=== PATIENT | female | born 1995 | race Caucasian/White ===

== ENCOUNTER 2017-05-21 16:22 | Emergency (ER) | payer OTHER ==
[~2017-05-21] VITALS: Ht 162.6 cm; Wt 65.8 kg
[2017-05-21] MEDS ORDERED: ETHI1TAB26 PO (16:49)
[2017-05-21 17:15] LABS: ASPARTATE AMINO TRANSFERASE 15 U/L (15-37); BLOOD UREA NITROGEN 14 mg/dL (7-18)
[2017-05-21 17:45] VITALS: BP 115/61
[2017-05-21 17:46] LABS: HEMATOCRIT 43.8 % (34.6-47.8); HEMOGLOBIN 14.8 g/dL (11.7-16.4)
== END 2017-05-21 18:35 | disposition home or self-care (01) ==
LOC: ED 16:58
DX: R10.13 Epigastric pain (principal)
CPT/HCPCS: 36415; 80053; 81003; 83690; 84703; 85025; 99284

== ENCOUNTER 2017-10-07 14:51 | Emergency (ER) | payer BC, OTHER ==
[~2017-10-07] VITALS: Ht 160 cm; Wt 66.4 kg
[~2017-10-07 14:51] MED LIST: ETHI1TAB26 PO
[2017-10-07 14:55] VITALS: BP 122/77
[2017-10-07 15:27] LABS: BASOPHILS # (AUTO) 0.02 x10^3/uL (0-0.3); BASOPHILS % (AUTO) 0 % (0-1); EOSINOPHILS # (AUTO) 0.05 x10^3/uL (0-0.8); EOSINOPHILS % (AUTO) 1 % (1-7); LYMPHOCYTES # (AUTO) 1.29 x10^3/uL (1-6.1); LYMPHOCYTES % (AUTO) 19 % (22-44); MD NO; MEAN CORPUSCULAR HEMOGLOBIN 29.1 pg (27.0-34.8); MEAN CORPUSCULAR HGB CONC 33.6 g/dL (32.4-35.8); MEAN CORPUSCULAR VOLUME 86.7 fL (80-100); MEAN PLATELET VOLUME 10.1 fL (7.4-10.4); MONOCYTES # (AUTO) 0.38 x10^3/uL (0-1.4); MONOCYTES % (AUTO) 6 % (2-9); NEUTROPHILS # (AUTO) 4.99 x10^3/uL (1.8-8.0); NEUTROPHILS % (AUTO) 74 % (42-75); PLATELET COUNT 201 x10^3/uL (130-400); RED BLOOD COUNT 4.98 x10^6/uL (3.82-5.3); RED CELL DISTRIBUTION WIDTH 13.8 % (9.6-15.2)
[2017-10-07 15:39] LABS: ALBUMIN 3.4 g/dL (3.4-5.0); ANION GAP 8 mmol/L (5-15); CALCIUM 8.5 mg/dL (8.5-10.1); CHLORIDE 106 mmol/L (98-107); CREATININE 0.83 mg/dL (0.55-1.02)
[2017-10-07 15:43] LABS: MICROSCOPIC AUTO
[2017-10-07 15:49] LABS: CULTURE INDICATED? YES
== END 2017-10-07 17:54 | disposition home or self-care (01) ==
LOC: ED 16:37
DX: N30.90 Cystitis, unspecified without hematuria (principal); N94.3 Premenstrual tension syndrome
CPT/HCPCS: 36415; 76830; 80048; 81001; 82040; 84703; 85025; 87077; 87086; 87186; 99285

== ENCOUNTER 2020-08-01 22:19 | Outpatient (CLI) | payer BC ==
[~2020-08-01] VITALS: Ht 162.6 cm; Wt 88.0 kg
[2020-08-01 22:36] VITALS: BP 127/77
== END 2020-08-01 23:43 | disposition home or self-care (01) ==
LOC: LDOP 22:19
PROVIDERS: ATTEND Student in an Organized Health Care Education/Training Program
DX: O26.893 Other specified pregnancy related conditions, third trimester (principal); R10.9 Unspecified abdominal pain; Z3A.39 39 weeks gestation of pregnancy
CPT/HCPCS: 59025

== ENCOUNTER 2020-08-02 01:48 | Inpatient (IN) | payer BC, OTHER ==
[~2020-08-02] VITALS: Ht 162.6 cm; Wt 87.0 kg
[2020-08-02] MEDS ORDERED: OXYTOCIN 30U/ 0.9% NaCL 500ML 500 ML ONE ×2 (02:09→12:35)
[2020-08-02] MEDS ORDERED: MISOPROSTOL 200 MCG TABLET ONE (02:09)
[2020-08-02] MEDS ORDERED: NEWBORN KIT ONE (02:09)
[2020-08-02] MEDS ORDERED: FENTANYL PF 100 MCG/2ML ONE (02:25)
[2020-08-02] MEDS ORDERED: PLEASE ENTER HEIGHT AND WEIGHT MC SCH (02:30)
[2020-08-02] MEDS ORDERED: CALCIUM CARBONATE 500 MG TAB.CHEW PO PRN (02:30)
[2020-08-02] MEDS ORDERED: FENTANYL PF 100 MCG/2ML IV PRN (02:30)
[2020-08-02] MEDS ORDERED: TERBUTALINE 1 MG/ML, 1ML SQ PRN (02:30)
[2020-08-02] MEDS ORDERED: LACTATED RINGERS 1,000 ML IV SCH ×2 (02:30→04:00)
[2020-08-02] MEDS ORDERED: TERBUTALINE 1 MG/ML, 1ML IVPush PRN (02:30)
[2020-08-02] MEDS ORDERED: FENTANYL PF 100 MCG/2ML IVPush PRN (02:30)
[2020-08-02] MEDS ORDERED: D5%-LACTATED RINGERS 1,000 ML IV SCH (02:30)
[2020-08-02 02:32] VITALS: BP 125/78
[2020-08-02 02:52] LABS: BASOPHILS % (AUTO) 0 % (0-1); EOSINOPHILS % (AUTO) 0 % (1-7); LYMPHOCYTES % (AUTO) 7 % (22-44); MEAN CORPUSCULAR HEMOGLOBIN 27.8 pg (27.0-34.8); MEAN CORPUSCULAR HGB CONC 33.3 g/dL (32.4-35.8); MEAN PLATELET VOLUME 10.9 fL (7.4-10.4); MONOCYTES % (AUTO) 6 % (2-9); NEUTROPHILS % (AUTO) 86 % (42-75); PLATELET COUNT 156 x10^3/uL (130-400); RED CELL DISTRIBUTION WIDTH 14.8 % (9.6-15.2)
[2020-08-02] MEDS ORDERED: FENTANYL/BUPIV./NS/PF 0 ML EPIDCONT ONE (02:54)
[2020-08-02 02:55] LABS: MD NO
[2020-08-02] MEDS ORDERED: BUPIVACAINE 0.25% ONE (03:10)
[2020-08-02] MEDS ORDERED: FENTANYL/BUPIV./NS/PF 250 ML EPIDCONT ONE (03:10)
[2020-08-02] MEDS ORDERED: LACTATED RINGERS 1,000 ML IVBOLUS PRN (04:00)
[2020-08-02] MEDS ORDERED: ONDANSETRON 2MG/ML, 2ML IVPush PRN (04:00)
[2020-08-02] MEDS ORDERED: NALOXONE 0.4 MG/ML, 1ML IVPush PRN (04:00)
[2020-08-02] MEDS ORDERED: FENTANYL/BUPIV./NS/PF 250 ML EPIDCONT SCH (04:00)
[2020-08-02] MEDS ORDERED: DIPHENHYDRAMINE 50 MG/ML, 1ML IVPush PRN (04:00)
[2020-08-02] MEDS ORDERED: EPHEDRINE 50 MG/ML, 1ML IVPush PRN (04:00)
[2020-08-02] MEDS ORDERED: AMPICILLIN 2 GM in SODIUM CHLORIDE 0.9% 100 ML IV SCH (09:00)
[2020-08-02] MEDS ORDERED: ACETAMINOPHEN 325 MG TABLET ONE (09:49)
[2020-08-02] MEDS ORDERED: ACETAMINOPHEN 325 MG TABLET PO PRN ×2 (10:00→15:00)
[2020-08-02] MEDS ORDERED: AMPICILLIN/SULBACTAM 2 GM in SODIUM CHLORIDE 0.9% 100 ML IV SCH (11:00)
[2020-08-02] MEDS ORDERED: IBUPROFEN 600 MG TABLET PO PRN (12:30)
[2020-08-02] MEDS ORDERED: IBUPROFEN 600 MG TABLET ONE (12:35)
[2020-08-02 14:20] VITALS: BP 113/74
[2020-08-02] MEDS ORDERED: DIPH,PERTUSS(ACELL),TET VAC/PF NC IM-VACC PRN (15:00)
[2020-08-02] MEDS ORDERED: SIMETHICONE 80 MG CHEW TAB PO PRN (15:00)
[2020-08-02] MEDS ORDERED: CARBOPROST TROMETHAMINE 250 MCG/ML, 1ML IM PRN (15:00)
[2020-08-02] MEDS ORDERED: MISOPROSTOL 200 MCG TABLET PR PRN (15:00)
[2020-08-02] MEDS: OXYTOCIN 30U/ 0.9% NaCL 500ML 500 ML IV SCH (15:00)
[2020-08-02] MEDS ORDERED: OXYcodone/APAP 5/325MG TABLET PO PRN ×2 (15:00)
[2020-08-02] MEDS ORDERED: METHYLERGONOVINE 0.2 MG/ML IM PRN (15:00)
[2020-08-02] MEDS ORDERED: RHOGAM FROM BLOOD BANK 1 NOTE EA IM/IV ONE (15:00)
[2020-08-02 17:30] VITALS: BP 110/69
[2020-08-02 19:26] LABS: BASOPHILS % (AUTO) 0 % (0-1); EOSINOPHILS % (AUTO) 0 % (1-7); LYMPHOCYTES % (AUTO) 4 % (22-44); MEAN CORPUSCULAR HEMOGLOBIN 28.1 pg (27.0-34.8); MEAN CORPUSCULAR HGB CONC 33.9 g/dL (32.4-35.8); MEAN PLATELET VOLUME 10.4 fL (7.4-10.4); MONOCYTES % (AUTO) 5 % (2-9); NEUTROPHILS % (AUTO) 91 % (42-75); PLATELET COUNT 119 x10^3/uL (130-400); RED BLOOD COUNT 3.51 x10^6/uL (3.82-5.3); RED CELL DISTRIBUTION WIDTH 14.7 % (9.6-15.2)
[2020-08-02 19:27] LABS: MD NO
[2020-08-02 19:50] VITALS: BP 113/73
[2020-08-02] MEDS: DOCUSATE 100 MG CAPSULE PO PRN (20:02)
[2020-08-02] MEDS: IBUPROFEN 600 MG TABLET PO PRN (20:02)
[2020-08-03] VITALS: BP 121/68
[2020-08-03] MEDS: OXYTOCIN 30U/ 0.9% NaCL 500ML 500 ML IV SCH ×2 (01:00→11:00)
[2020-08-03 04:30] VITALS: BP 108/66
[2020-08-03] MEDS: IBUPROFEN 600 MG TABLET PO PRN ×2 (04:36→11:31)
[2020-08-03] MEDS: DOCUSATE 100 MG CAPSULE PO PRN (08:05)
[2020-08-03 08:15] VITALS: BP 112/74
[2020-08-03] MEDS ORDERED: PRENATAL VIT/IRON/FA 1 EACH TABLET PO SCH (09:00)
[2020-08-03] MEDS ORDERED: IBUP-1222 PO (12:11)
== END 2020-08-03 15:50 | disposition home or self-care (01) | DRG 805 ==
LOC: LDOP 01:48 → LDIP 02:06 → 2NW 14:36
PROVIDERS: ADMIT Student in an Organized Health Care Education/Training Program; ATTEND Student in an Organized Health Care Education/Training Program
PROC: 10E0XZZ Delivery of Products of Conception, External Approach (ICD-10-PCS; principal; 2020-08-02)
PROC: 0KQM0ZZ Repair Perineum Muscle, Open Approach (ICD-10-PCS; 2020-08-02)
DX: O76 Abnormality in fetal heart rate and rhythm complicating labor and delivery (principal); O41.1230 Chorioamnionitis, third trimester, not applicable or unspecified; Z37.0 Single live birth; Z20.822 Contact with and (suspected) exposure to COVID-19; O70.1 Second degree perineal laceration during delivery; Z3A.39 39 weeks gestation of pregnancy
CPT/HCPCS: 36415; J7121; 85025; 86592; 86850; 86900; 87635; G0378; J0290; J3010; J7120